=== PATIENT | female | born 1995 | race Caucasian/White ===

== ENCOUNTER 2017-11-20 17:28 | Emergency (ER) | payer OTHER ==
--- NOTE | 2017-11-20 17:40 | PDOC ---
Rapid Medical Evaluation Time Seen by Provider: 11/20/17 17:35 Medical Evaluation: I have performed a brief in-person evaluation of this patient. The patient presents with a chief complaint of: left ankle pain x over 5 weeks ago. was seen at [facility], had a negative xray. Still having intermittent pain and swelling. Has not seen an orthopedic Pertinent physical exam findings: normal gait. pain with palpation of left medial malleolus I have ordered the following: MOLINA bandage Will discharge the patient from triage with an MOLINA bandage and ortho referral. Discharge Disposition - Diagnosis Ankle pain, left - Discharge Dispostion Disposition: HOME Condition at time of disposition: Good - Referrals Referrals: Derek Miguel MD [Staff Physician] - Call tomorrow - Patient Instructions Printed Discharge Instructions: DI for Ankle Pain, How To Perform RICE (Rest, Ice, Compress, Elevate) Additional Instructions: Discharge Instructions: -Use the MOLINA bandage for support and comfort -Follow RICE instructions -FOllow up with Dr. Miguel as soon as possible -Take 600mg of Ibuprofen every 6 hours with food for pain and swelling if needed - Post Discharge Activity
[2017-11-20 17:50] VITALS: BP 138/82; PULSE 88; TEMP 98; BMI 25.1
== END 2017-11-20 18:04 | disposition home or self-care (01) ==
LOC: JERFT 17:28
DX: M25.572 Pain in left ankle and joints of left foot (principal)
CPT/HCPCS: 99281-25